=== PATIENT | male | born 1955 | race Caucasian/White ===

== ENCOUNTER 2022-05-18 15:42 | Outpatient (CLI) | payer BC, SELFPAY | END 2022-05-18 15:43 | disposition home or self-care (01) | PROVIDERS: PCP Family Medicine; Visit Provider Specialist | DX: L01.00 Impetigo, unspecified (principal); L30.4 Erythema intertrigo | CPT/HCPCS: 87070; 87205 ==

== ENCOUNTER → 2023-11-02 11:23 | Outpatient (CLI) | payer MEDICARE, SELFPAY ==
--- NOTE | ~2023-11-02 | XR_ITS ---
Clinical Indication: Cough PA and lateral views of the chest: Comparison: 12/21/2021 Findings: Chronic interstitial disease is similar to prior exam. No acute pulmonary pathology evident . Cardiomediastinal silhouette is within normal limits. Bones and soft tissues are unremarkable. Impression: Stable diffuse chronic interstitial disease. Reviewed, dictated and finalized at location . [employer] Impression: Stable diffuse chronic interstitial disease.
== END ==
DX: R05.3 Chronic cough (principal); J84.9 Interstitial pulmonary disease, unspecified
CPT/HCPCS: 71046